=== PATIENT | female | born 1940 | race Caucasian/White ===

== ENCOUNTER 2017-03-22 14:01 | Emergency (ER) | payer MEDICARE, OTHER ==
[~2017-03-22] VITALS: Ht 157.5 cm; Wt 71.0 kg
[2017-03-22 14:08] VITALS: BP 133/64; PULSE 54; RESP 16; TEMP 97.5; O2SAT 99
[2017-03-22] MEDS ORDERED: ACETAMINOPHEN/HYDROcodone 325 MG/5 MG TAB PO ONE (14:45)
[2017-03-22] MEDS ORDERED: KETOROLAC TROMETHAMINE 60 MG/2 ML (IM) VIAL IM ONE (14:45)
[2017-03-22] MEDS ORDERED: OMEP40CA2 PO (14:49)
[2017-03-22] MEDS ORDERED: BONI150T PO (14:49)
[2017-03-22] MEDS ORDERED: NADO40TA2 PO (14:49)
--- NOTE | 2017-03-22 14:54 | PD ---
HPI Chief Complaint: Back/ Neck Pain or Injury Time Seen by Provider: 14:50 Travel History International Travel<30 days: No Contact w/Intl Traveler<30days: No Traveled to known affect area: No History of Present Illness HPI 76-year-old female that presents to the ED for evaluation of lower back pain. Per patient the pain is mainly on the right side. No injuries but she states that she's been carrying a lot of heavy stuff recently. Pain started on Sunday. Progressively getting worse until today. She does have a history of cirrhosis and osteoporosis. Denies any actual trauma or falls. No numbness, tilling, weakness. Able to ambulate. Taking [id number] remedies as well as medical patches with minimal relief. No rashes. No urinary or bowel movement issues. Per patient the pain is severe 8 out of 10. Does not radiate. States mainly on the right side. PFSH Social History Alcohol Use: No Tobacco Use: No Substance Use: No Allergies-Medications (Allergen,Severity, Reaction): Coded Allergies: No Known Allergies (Unverified , 03/22/17) Reported Meds & Prescriptions Reported Meds & Active Scripts Active Reported Boniva (Ibandronate Sodium) 150 Mg Tab 150 Mg PO Q28D Omeprazole 40 Mg Cap 40 Mg PO DAILY Nadolol-Bendroflumethiazine 40-5 Mg Tab 1 Tab PO DAILY Review of Systems Except as stated in HPI: all other systems reviewed are Neg Physical Exam Narrative GENERAL: SKIN: Warm and dry. HEAD: Atraumatic. Normocephalic. EYES: Pupils equal and round. No scleral icterus. No injection or drainage. ENT: No nasal bleeding or discharge. Mucous membranes pink and moist. Tongue is midline. No uvula deviation. NECK: Trachea midline. No JVD. CARDIOVASCULAR: Regular rate and rhythm. RESPIRATORY: No accessory muscle use. Clear to auscultation. Breath sounds equal bilaterally. GASTROINTESTINAL: Abdomen soft, non-tender, nondistended. Hepatic and splenic margins not palpable. MUSCULOSKELETAL: Extremities without clubbing, cyanosis, or edema. No obvious deformities. Full range of motion of the upper and lower extremities bilaterally. 2+ pulses bilaterally. Straight leg test is negative bilaterally. Noticed thoracic or cervical spine tenderness to palpation. Patient does have some lumbar spine tenderness to palpation of most of the pain appears to be on the right lumbar musculature. No obvious neurological deficits. NEUROLOGICAL: Awake and alert. No obvious cranial nerve deficits. Motor grossly within normal limits. Five out of 5 muscle strength in the arms and legs. Normal speech. PSYCHIATRIC: Appropriate mood and affect; insight and judgment normal. Data Data Last Documented VS Vital Signs Date Time Temp Pulse Resp B/P Pulse Ox O2 Delivery O2 Flow Rate FiO2 03/22/17 14:08 97.5 54 16 133/[address] Lumb Spine W/O Contrast (03/22/17 14:33) Ketorolac Inj (Toradol Inj) (03/22/17 14:45) Acetamin-Hydrocod 325-5 Mg ([place] 5-325 (03/22/17 14:45) MDM Medical Decision Making Medical Screen Exam Complete: Yes Emergency Medical Condition: Yes Medical Record Reviewed: Yes Interpretation(s) CT of the lumbar spine show only chronic changes but no sign of acute disease. Differential Diagnosis Back pain versus compression fracture versus muscle strain versus lumbar strain versus muscle spasm versus herniated disc Narrative Course 76-year-old female that presents to the ED for evaluation of lower back pain with no injury. Patient was properly examined and was found to have signs and symptoms consistent appears to be musculoskeletal pain. Patient has been doing a lot of heavy lifting. More likely this is muscular or patient does have a history of osteoporosis and she does have some tenderness to palpation on lumbar spine. Because of her age and her risk factors a do recommend imaging to ensure there is no acute disease, require surgery or other treatment. Patient is in agreement with this plan. CT was ordered. Patient was given IM Toradol and Lortab by mouth. Imaging showed no sign of acute bony injury on chronic changes. Patient was reassured. Patient will be sent home with prescriptions for diclofenac sodium and robaxin. Told to use only as needed. Close follow with PCP. Ice or warm compresses. No heavy lifting. Rest. See ED for worsening symptoms. Diagnosis Primary Impression: Back pain Qualified Code: M54.5 - Acute right-sided low back pain without sciatica Patient Instructions: Narcotic given in the ED, General Instructions Additional Instructions: Take medications as prescribed. Follow-up with PCP. See ED for any worsening symptoms. Do not drink or drive while taking pain medication. Apply ice or heat as needed for pain Med/Other Pt SpecificInfo: Prescription(s) given Disposition: 01 DISCHARGE HOME Condition: Stable Efrain,Vu PA Mar 22, 2017 14:54
[2017-03-22] MEDS ORDERED: DICL75TA PO (14:59)
[2017-03-22] MEDS ORDERED: ROBA500T PO (14:59)
--- NOTE | 2017-03-22 16:38 | RADRPT ---
EXAM DATE/TIME: 03/22/2017 15:20 [facility] COMPARISON: No previous studies available for comparison. INDICATIONS : Lower back pain, worse on right side. RADIATION DOSE: 39.41 CTDIvol (mGy) MEDICAL HISTORY : Cirrhosis. Gastroesophageal reflux disease. SURGICAL HISTORY : Appendectomy. Cholecystectomy.Hysterectomy. ENCOUNTER: Initial ACUITY: 3 days PAIN SCALE: 5/10 LOCATION: lower back. TECHNIQUE: Volumetric scanning of the lumbar spine was performed. Multiplanar reconstructions in the sagittal, coronal and oblique axial planes were performed. Using automated exposure control and adjustment of the mA and/or kV according to patient size, radiation dose was kept as low as reasonably achievable t o obtain optimal diagnostic quality images. DICOM format image data is available electronically for review and comparison. FINDINGS: VERTEBRAE: Normal vertebral body height. ALIGNMENT: No evidence of subluxation. T12-L1: The thecal sac has a normal diameter. No evidence of disc bulge or protrusion. The neural foramina are patent bilaterally. L1-L2: The thecal sac has a normal diameter. No evidence of disc bulge or protrusion. The neural foramina are patent bilaterally. A small anterior osteophyte. L2-L3: The thecal sac has a normal diameter. No evidence of disc bulge or protrusion. The neural foramina are patent bilaterally. L3-L4: A minimal broad-based disc bulge. Mild ligamentum flavum hypertrophy of the facets. Central canal and lateral recesses are patent. Neural foramina are patent. L4-L5: A minimal broad-based disc bulge. Mild ligamentum flavum hypertrophy of the facets. Central canal and lateral recesses are patent. Neural foramina are patent. L5-S1: A minimal broad-based disc bulge. Mild ligamentum flavum hypertrophy of the facets. Central canal and lateral recesses are patent. Neural foramina are patent. CONCLUSION: Mild degenerative changes without neural impingement or central canal stenosis. Darren Alves Jr., MD on March 22, 2017 at 16:32 Board Certified Radiologist. This report was verified electronically.
== END 2017-03-22 16:53 | disposition home or self-care (01) ==
LOC: PHEFT 14:01
DX: M54.5 Low back pain (principal)
CPT/HCPCS: 72131; 96372; 99285; J1885